=== PATIENT | female | born 2000 | race Caucasian/White ===

== ENCOUNTER 2021-03-09 20:58 | Emergency (ER) | payer OTHER ==
[~2021-03-09] VITALS: Ht 170.2 cm; Wt 81.8 kg
[2021-03-09 21:06] VITALS: TEMP 98.3
[2021-03-09] MEDS ORDERED: EPIPEN 2-PAK1 MG/ML IM (22:45)
[2021-03-09 23:09] VITALS: BP 123/82; PULSE 103
== END 2021-03-09 23:09 | disposition home or self-care (01) ==
LOC: COL.ER 20:58
DX: T78.40XA Allergy, unspecified, initial encounter (principal); J45.909 Unspecified asthma, uncomplicated; X58.XXXA Exposure to other specified factors, initial encounter
CPT/HCPCS: J0171; J1200; J2930